=== PATIENT | female | born 1940 | race Caucasian/White ===

== ENCOUNTER 2018-02-03 12:37 | Emergency (ER) | payer MEDICARE, MEDICAID ==
--- NOTE | 2018-02-03 12:51 | Emergency Department Record ---
History of Present Illness - General Chief complaint: Rectal bleeding Stated complaint: RECTAL BLEEDING Source: Patient Mode of Arrival: Ambulatory Limitations: No limitations - History of Present Illness Initial comments: 77 yo female presents with bleeding from the rectum that started this morning. She reports that she is on Xarelto for atrial fibrillation. She has developed multiple bloody stools this morning. No blood prior to this morning. She states she has upper abdominal discomfort. No fevers. NO vomiting. She has seen blood in her stools in the past but is unsure of any specific cause. She no longer takes coumadin. She had her last colonoscopy a few years ago. MD complaint: Gross hematochezia -: Hour(s) Radiation: Epigastric Quality: Cramping Consistency: Intermittent Improves with: None Worsens with: Bowel movement Context: History of GI bleed Associated Symptoms: Abdominal pain - Related Data Home Medications Medication Instructions Recorded Confirmed Last Taken Naproxen [Naprosyn] 500 mg PO ASDIR 02/03/18 02/03/18 02/03/18 Pregabalin [Lyrica] 75 mg PO BID 02/03/18 02/03/18 02/03/18 Ranitidine HCl 150 mg PO DAILY 02/03/18 02/03/18 02/03/18 Rivaroxaban [Xarelto] 20 mg PO DAILY 02/03/18 02/03/18 02/02/18 Allergies Allergy/AdvReac Type Severity Reaction Status Date / Time amiodarone Allergy ANAPHYLAXIS Verified 02/03/18 12:48 cephalexin monohydrate Allergy HIVES Verified 02/03/18 12:48 [From Keflex] Penicillins Allergy HIVES Verified 02/03/18 12:48 Review of Systems Constitutional: Denies: Chills, Fever, Malaise, Weakness Eyes: Denies: Eye discharge ENT: Denies: Congestion, Throat pain Respiratory: Denies: Cough, Dyspnea, Hemoptysis, Stridor, Wheezes Cardiovascular: Denies: Chest pain, Palpitations, Syncope Endocrine: Denies: Fatigue, Polydipsia, Polyuria Gastrointestinal: Reports: Abdominal pain, Hematochezia. Denies: Constipation, Diarrhea, Hematemesis, Melena, Nausea, Vomiting Genitourinary: Denies: Dysuria, Urgency Musculoskeletal: Denies: Arthralgia, Back pain, Myalgia Skin: Denies: Bruising, Change in color, Rash Neurological: Denies: Headache, Numbness, Vertigo, Weakness Psychiatric: Denies: Anxiety Hematological/Lymphatic: Reports: Easy bleeding, Easy bruising. Denies: Blood Clots, Swollen glands Past Medical History - SOCIAL HISTORY Smoking Status: Never smoker - RESPIRATORY Hx Respiratory Disorders: No - CARDIOVASCULAR Hx Cardio Disorders: Yes Hx Deep Vein Thrombosis: Yes Comment:: ostopenia - NEURO Hx Neuro Disorders: No - GI Hx GI Disorders: Yes Comment:: cancer, chronic constipation - Hx Genitourinary Disorders: Yes Hx UTI: Yes - ENDOCRINE Hx Endocrine Disorders: No Comment:: does have goiter - MUSCULOSKELETAL Hx Musculoskeletal Disorders: Yes Hx Arthritis: Yes Hx Fibromyalgia: Yes Comment:: chronic fatigue - PSYCH Hx Psych Problems: Yes Hx Anxiety: Yes Hx Depression: Yes - HEMATOLOGY/ONCOLOGY Hx Hematology/Oncology Disorders: Yes Hx Cancer: Yes (non-hodgkins lymphoma) Family Medical History Hx Cancer: Father, Mother Hx Diabetes: Father, Mother, Brother/Sister Physical Exam - General General Appearance: Alert, Oriented x3, Cooperative, No acute distress Limitations: No limitations - Head Head exam: Atraumatic, Normal inspection - Eye Eye exam: Normal appearance. negative: Conjunctival injection, Scleral icterus - ENT ENT exam: Normal exam, Mucous membranes moist Ear exam: Normal external inspection Nasal Exam: Normal inspection Mouth exam: Normal external inspection - Neck Neck exam: Normal inspection, Full ROM. negative: Tenderness - Respiratory Respiratory exam: Normal lung sounds bilaterally. negative: Respiratory distress - Cardiovascular Cardiovascular Exam: Regular rate, Normal heart sounds Peripheral Pulses: 2+: Radial (R), Radial (L) - GI/Abdominal GI/Abdominal exam: Soft, Tenderness (Very mild epigastric tenderness). negative : Distended, Guarding, Hypoactive bowel sounds, Rebound, Rigid - Rectal Rectal exam: Bloody stool (brighter maroon), Heme (+) stool, Normal inspection, Normal rectal tone. negative: Hemorrhoids, Mass - exam: Deferred - Extremities Extremities exam: Normal inspection, Full ROM, Normal capillary refill, Other ( scattered bruising). negative: Tenderness - Back Back exam: Denies: CVA tenderness (R), CVA tenderness (L) - Neurological Neurological exam: Alert, Oriented X3. negative: Altered - Psychiatric Psychiatric exam: Normal affect, Normal mood. negative: Agitated, Anxious - Skin Skin exam: Dry, Intact, Warm. negative: Cyanosis, Diaphoretic, Erythema, Mottled Course - Reevaluation(s) Reevaluation #1: 02/03/18 14:30 The Hbg is 8.3. Prior at [facility] is 2015 was normal at 12.5 Platelets are 132 02/03/18 15:33 The CMP was reviewed The BUN is 35 with CR of 1.1 otherwise normal 02/03/18 15:39 Maroon stools heme positive on rectal examination On 01/28/18 Hgb was 9.2. On 11/22/17 Hgb was 13.2 02/03/18 16:35 The radiologist called regarding the CT. The gall bladder appears thickened with possible cholecystitis. 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 Renal Cyst. Pleural effusions. Possible chronic pancreatitis. US recommended. The results were discussed with the patient and daughter. With the GI bleed, possible cholecystitis, recommend transfer to [facility] for further work up. 02/03/18 17:35 Dr Esparza for transfer to [facility]. Medical Decision Making - Lab Data Result diagrams: 02/03/18 13:30 02/03/18 13:30 Disposition Disposition: Transfer Clinical Impression: GI bleed Disposition: Acute Care Hospital Transfer Transfer To: [facility] Reason For Transfer: GI Bleed, Accepting Physician: Vilma Time Discussed w/Accepting Physician: 17:35 Condition: (2) Stable Instructions: Rectal Bleeding (ED) Forms: Patient Portal Access Time of Disposition: 17:35 Quality - Quality Measures Quality Measures: N/A - Blood Pressure Screening Does Patient Have Any of the Following: Active Dx of HTN Blood Pressure Classification: Hypertensive Reading Systolic Measurement: 124 Diastolic Measurement: 94 Screening for High Blood Pressure: Patient Exclusion, Hx of HTN [G9744]
[2018-02-03] MEDS ORDERED: 0.9 % SODIUM CHLORIDE 1000ML 1,000 ML IV ONE (12:56)
[2018-02-03 13:41] LABS: HEMATOCRIT 25.6 % (35.0-47.0); HEMOGLOBIN 8.3 gm/dl (11.6-16.0); MEAN CELL VOLUME 91.8 fl (81-97); MEAN CORPUSCULAR HEMOGLOBIN 29.7 pg (27-33); MEAN CORPUSCULAR HGB CONC 32.4 g/dl (32-36); RED BLOOD COUNT 2.79 M/uL (3.80-5.40); RED CELL DISTRIBUTION WIDTH 21.3 % (11.5-14.5)
[2018-02-03 13:43] LABS: PLATELET COUNT 132 K/uL (130-400)
[2018-02-03 13:52] LABS: BILIRUBIN,TOTAL 0.7 mg/dL (0.2-1.0); CREATININE 1.1 mg/dL (0.5-0.9)
[2018-02-03 13:53] LABS: INR 1.3; PROTHROMBIN TIME (PATIENT) 14.1 SECONDS (9.5-12.1); TOTAL PROTEIN 6.2 g/dL (6.6-8.7)
[2018-02-03 13:56] LABS: ANISOCYTOSIS 1+; POIKILOCYTOSIS 1+
[2018-02-03 13:57] LABS: ALB/GLOB RATIO 2.1 (1.1-1.8); ALBUMIN 4.2 g/dL (4.0-5.0)
--- NOTE | 2018-02-05 06:04 | CT SCAN REPORT ---
DATE: 02/03/2018. EXAM: CT SCAN OF THE ABDOMEN AND PELVIS. HISTORY: The patient has a history of Non-Hodgkin's lymphoma. The patient has rectal bleeding. 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 TECHNIQUE: Serial axial CT scan of the abdomen and pelvis was performed at 2.5 mm intervals from the dome of the diaphragm down to the pubic symphysis following the intravenous administration of 100 mL of Omnipaque 300. COMPARISON: No comparison CTs are available. FINDINGS: Lung windows and lung bases demonstrate mild to moderate bilateral posterior lower lobe passive atelectasis with mild to moderate pleural effusions. Mild cardiomegaly is noted. The liver and adrenal glands appear unremarkable. The spleen demonstrates a 6.8 cm cystic lesion with a thin rim of peripheral calcification. This finding appears to be a chronic process. Differential considerations include a congenital splenic cyst. It is also noted that the splenic artery is coursing adjacent to this region. A pseudoaneurysm from the distal aspect of the splenic artery near the splenic hilum cannot be entirely excluded. The gallbladder demonstrates questionable thickened rivas. Cholecystitis cannot be excluded. If this is further clinical concern then an ultrasound examination of the gallbladder can be obtained for further evaluation. The pancreas demonstrates a mildly dilated pancreatic duct. Several small fluid attenuation lesions are identified surrounding the pancreas which may represent small pseudocysts. Chronic pancreatitis cannot be entirely excluded. The bilateral kidneys demonstrate no CT evidence of hydronephrosis or hydroureter. No renal or ureteral calculi are noted. There is a 7.5 cm exophytic cyst identified at the midpole of the right kidney. Several smaller cysts are also identified within both kidneys. The contour, caliber, and flow within the abdominal aorta is within normal limits. There is no CT evidence of retroperitoneal, pelvic, or inguinal lymphadenopathy. The bowel gas pattern is nonspecific and nonobstructive. Postoperative changes are identified in the region of the distal small bowel and ascending colon. There is no CT evidence of free intraperitoneal fluid or free intraperitoneal air. The urinary bladder is unremarkable. The uterus is atrophic. Bone windows demonstrate no CT evidence of osteolytic or osteoblastic lesions. IMPRESSION: 1. BILATERAL LOWER LOBE PASSIVE ATELECTASIS AND/OR INFILTRATE WITH SMALL PLEURAL EFFUSIONS. FOLLOW-UP PA AND LATERAL VIEWS OF THE CHEST CAN BE OBTAINED UPON RESOLUTION OF THESE FINDINGS. 2. HYPODENSITY WITHIN THE SPLEEN IS IDENTIFIED DISCUSSED ABOVE. DIFFERENTIAL CONSIDERATIONS INCLUDE A SPLENIC CYST WITH A THIN RIM OF PERIPHERAL CALCIFICATION VERSUS PSEUDOANEURYSM FROM THE DISTAL ASPECT OF THE SPLENIC ARTERY. 3. THICKENED GALLBLADDER WALL. CHOLECYSTITIS CANNOT BE EXCLUDED. IF THERE IS FURTHER CLINICAL CONCERN, THEN ULTRASOUND EXAMINATION OF THE GALLBLADDER CAN BE OBTAINED FOR FURTHER EVALUATION. 4. POSSIBLE CHRONIC PANCREATITIS. CLINICAL CORRELATION IS RECOMMENDED. JOB NUMBER: [id number] MTDD
== END 2018-02-03 18:19 | disposition short-term general hospital (02) ==
LOC: ER 12:37
DX: K92.1 Melena (principal); R10.13 Epigastric pain; I48.91 Unspecified atrial fibrillation; I10 Essential (primary) hypertension; Z79.01 Long term (current) use of anticoagulants; C85.90 Non-Hodgkin lymphoma, unspecified, unspecified site
CPT/HCPCS: 99285 ×2; 83690; 85730; 85610; 80053; 85027; 74177; Q9967; J7030